=== PATIENT | female | born 1970 | race African-American/Black ===

== ENCOUNTER 2018-02-01 11:44 | Emergency (ER) | payer MEDICARE, MEDICAID ==
[~2018-02-01] VITALS: Ht 162.6 cm; Wt 50.0 kg
[2018-02-01] MEDS ORDERED: ONDANSETRON HCL 4MG/2ML VIAL IV STA (13:23)
[2018-02-01] MEDS ORDERED: MAGNESIUM/ALUMINUM HYDROXIDE/SIMETHICONE 30ML UDC PO STA (13:23)
[2018-02-01] MEDS ORDERED: PANTOPRAZOLE SODIUM 40 MG/VIAL IV STA (13:23)
[2018-02-01] MEDS ORDERED: SODIUM CHLORIDE 0.9% 1,000 ML IV ONE (13:23)
[2018-02-01] MEDS ORDERED: KETOROLAC 30MG/ML VIAL IV STA (13:23)
[2018-02-01 14:28] LABS: BASOPHILS % 0.7 % (0.0-2.0); EOSINOPHILS % 0.2 % (0.0-5.0); HEMATOCRIT. 44.2 % (36.0-48.0); HEMOGLOBIN. 15.3 g/dL (12.0-16.0); LYMPHOCYTES % 31.7 % (20.0-50.0); MEAN CORPUSCULAR HEMOGLOBIN 34.7 pg (28.0-32.0); MEAN CORPUSCULAR VOLUME 100.5 fL (81.0-99.0); MEAN PLATELET VOLUME 7.4 fl (7.4-10.4); MONOCYTES % 6.5 % (2.0-8.0); NEUTROPHILS % 60.9 % (40.0-76.0); PLATELET 268 x1000/uL (130-400)
[2018-02-01 14:33] LABS: CHLORIDE 100 mEq/L (98-107)
[2018-02-01 16:03] LABS: CLARITY URINE CLOUDY (CLEAR); COLOR URINE YELLOW (YELLOW); KETONES URINE NEGATIVE (NEGATIVE); LEUKOCYTE ESTERASE URINE NEGATIVE (NEGATIVE); NITRITE URINE NEGATIVE (NEGATIVE); OCCULT BLOOD URINE TRACE (NEGATIVE); PH URINE >=9.0 (4.5-8.0); PROTEIN URINE TRACE (NEGATIVE); SPECIFIC GRAVITY URINE 1.018 (1.005-1.030)
[2018-02-01 16:51] VITALS: BP 121/84
== END 2018-02-01 17:12 | disposition home or self-care (01) ==
LOC: ER 12:25
DX: R10.13 Epigastric pain (principal); R11.2 Nausea with vomiting, unspecified
CPT/HCPCS: 36415; 74176; 80053; 81003; 81025; 83690; 85025; 93005; 96361; 96374; 96375; 99285; C9113; J1885; J2405; J7030

== ENCOUNTER 2024-11-02 17:01 | Emergency (ER) | payer MEDICARE, MEDICAID ==
[~2024-11-02] VITALS: Ht 165.1 cm; Wt 64.0 kg
[2024-11-02 17:03] VITALS: TEMP 37; O2SAT 100
[2024-11-02] MEDS ORDERED: IBUPROFEN 600MG TABLET PO ONE (18:15)
[2024-11-02] MEDS ORDERED: NAPR220C61 MT (18:37)
[2024-11-02] MEDS ORDERED: DICL100G32 TP (18:37)
[2024-11-02 18:48] VITALS: BP 149/99; PULSE 88; RESP 16
[2024-11-02] MEDS: KETOROLAC 30MG/ML VIAL IM ONE (18:48)
== END 2024-11-02 19:01 | disposition home or self-care (01) ==
LOC: ER 17:01
DX: M17.12 Unilateral primary osteoarthritis, left knee (principal); W05.1XXA Fall from non-moving nonmotorized scooter, initial encounter; Y93.89 Activity, other specified; Y92.89 Other specified places as the place of occurrence of the external cause; Y99.8 Other external cause status
CPT/HCPCS: 99284; 73562; 73590; 96372; J1885

== ENCOUNTER 2024-11-02 19:08 | Emergency (ER) | payer MEDICARE, MEDICAID ==
[~2024-11-02 19:08] MED LIST: DICL100G32 TP; NAPR220C61 MT
== END 2024-11-02 21:16 | disposition left against medical advice (07) ==
LOC: ER 19:08
DX: Z53.21 Procedure and treatment not carried out due to patient leaving prior to being seen by health care provider (principal)